=== PATIENT | female | born 1960 | race Caucasian/White ===

== ENCOUNTER 2016-03-26 07:26 | Day surgery (SDC) | payer BC ==
[2016-03-26] VITALS (7 sets, daily range): BP systolic 107–122; BP diastolic 60–75; PULSE 52–61; RESP 16–20; TEMP 97.6–97.8; O2SAT 96–97
[~2016-03-26] VITALS: Ht 165.1 cm; Wt 68.2 kg
[~2016-03-26 07:26] MED LIST: TAB-TAB PO
[2016-03-26] MEDS ORDERED: ROPI0.5T PO (07:43)
[2016-03-26] MEDS ORDERED: SODIUM CHLOR 0.9% 1000 ML INJ 1,000 ML IV SCH (07:45)
[2016-03-26 08:20] LABS: AUTOMATED NEUTROPHIL # 2.7 TH/MM3 (1.8-7.7); BASOPHIL # 0.1 TH/MM3 (0-0.2); EOSINOPHIL # 0.3 TH/MM3 (0-0.4); EOSINOPHIL % 5.2 % (0.0-4.0); HEMATOCRIT 36.9 % (35.0-46.0); HEMO FLAGS DIFF FINAL; LYMPH % 32.6 % (9.0-44.0); LYMPHOCYTE # 1.7 TH/MM3 (1.0-4.8); MEAN CELL VOLUME 91.9 FL (80.0-100.0); MEAN CORPUSCULAR HEMOGLOBIN 31.6 PG (27.0-34.0); MEAN CORPUSCULAR HGB CONC 34.3 % (32.0-36.0); MONO % 8.6 % (0.0-8.0); NEUT % 52.6 % (16.0-70.0); PLATELET COUNT 272 TH/MM3 (150-450); RED BLOOD COUNT 4.02 MIL/MM3 (4.00-5.30); RED CELL DISTRIBUTION WIDTH 12.8 % (11.6-17.2); WHITE BLOOD COUNT 5.1 TH/MM3 (4.0-11.0)
[2016-03-26 08:31] LABS: APTT (PATIENT) 25.4 SEC (24.3-30.1); PROTHROMBIN TIME - PATIENT 10.6 SEC (9.8-11.6)
[2016-03-26 08:39] LABS: BICARBONATE 26.9 MEQ/L (21.0-32.0)
--- NOTE | 2016-03-26 10:19 | PD.RAD ---
Post Procedure Progress Note Pre Procedure Diagnosis: (1) Neural axis abnormality Post Procedure Diagnosis: (1) Neural axis abnormality Procedure Date: Mar 26, 2016 Supervising Radiologist: Giovanny Contreras Proceduralist/Assist: RT Pato(R), RT Erick(R)(CV) Anesthesia: Local Plan of Activity Patient to Unit: ROPU Patient Condition: Good See PACS Report for procedural detail/treatment Spinal Procedure Lumbar Puncture L3-L4 Fluid Removal (CCs): 8 Fluid Description: Giovanny Linares MD Mar 26, 2016 10:19
[2016-03-26 11:40] LABS: GROSS BLOOD TUBE #1 0 (0); GROSS BLOOD TUBE #2 TRACE (0); SUPERNATE COLOR TUBE #1 CLEAR (CLEAR); SUPERNATE COLOR TUBE #2 CLEAR (CLEAR); WBC TUBE #1 0 /MM3 (0-10)
[2016-03-26 11:41] LABS: CSF LYMPHOCYTES 0 %; CSF NEUTROPHILS 0 %; GROSS BLOOD TUBE #3 0 (0); GROSS BLOOD TUBE #4 TRACE (0); SUPERNATE COLOR TUBE #3 CLEAR (CLEAR); SUPERNATE COLOR TUBE #4 CLEAR (CLEAR); VOLUME TUBE # 4 0.8 ML
[2016-03-27 16:02] LABS: ALBUMIN SERUM 4370 mg/dL (3200 - 4800); IGG INDEX CSF 0.53 (<=0.85); IGG SERUM 747 mg/dL (767 - 1590); IGG/ALBUMIN CSF 0.09 (<=0.21); IGG/ALBUMIN SERUM 0.17 (<=0.40); OLIGOCLONAL BANDING CSF 0 bands (()); OLIGOCLONAL BANDING INTERPRET 0 bands (<4); OLIGOCLONAL BANDING SERUM 0 bands (()); SYNTHESIS RATE CSF 0.24 mg/24 h (<=12)
[2016-03-27 23:56] LABS: CSF ANGIOTENSIN CONV ENZYME LESS THAN 5 U/L (< OR = 15)
[2016-07-16] MEDS ORDERED: DULC100C PO (09:10)
[2016-07-16] MEDS ORDERED: NAPR220T95 PO (09:10)
[2016-07-16] MEDS ORDERED: BIOT1SUB SL (09:10)
[2016-07-16] MEDS ORDERED: SOLU1INJ IV (12:33)
[2016-07-16] MEDS ORDERED: FAMO1TAB37 IV PUSH (12:33)
[2016-08-13] MEDS ORDERED: NAPR1TAB98 PO (10:28)
[2016-08-13] MEDS ORDERED: FAMO1TAB37 IV PUSH (10:33)
[2016-08-13] MEDS ORDERED: SENO8.6T5 PO (10:59)
[2016-08-13] MEDS ORDERED: CETI10CA3 PO (11:00)
== END 2016-03-26 12:30 | disposition home or self-care (01) ==
LOC: HROP 07:26 → HRIP 07:28 → HROP 12:30
PROVIDERS: ATTEND Psychiatry & Neurology Neurology
DX: M50.00 Cervical disc disorder with myelopathy, unspecified cervical region (principal)
CPT/HCPCS: 62270; 77003; 80048; 82040; 82042; 82164; 82784; 82945; 83916; 84157; 85025; 85610; 85730; 86592; 89051; J7030

== ENCOUNTER 2017-07-08 13:02 | Emergency (ER) | payer OTHER, BC ==
[~2017-07-08] VITALS: Ht 165.1 cm; Wt 76.1 kg
[~2017-07-08 13:02] MED LIST changes: +CETI10CA3 PO; +FAMO1TAB37 IV PUSH; +NAPR1TAB98 PO; +NEUR100C PO; +ROPI0.5T PO; +SENO8.6T5 PO; +SOLU125I IV; -TAB-TAB PO
[2017-07-08 13:10] VITALS: BP 128/65; PULSE 66; RESP 16; TEMP 98.2; O2SAT 95
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
== END 2017-07-08 15:15 | disposition home or self-care (01) ==
LOC: PHEFT 13:02
DX: S13.4XXA Sprain of ligaments of cervical spine, initial encounter (principal); G37.3 Acute transverse myelitis in demyelinating disease of central nervous system; V43.52XA Car driver injured in collision with other type car in traffic accident, initial encounter
CPT/HCPCS: 72125; 99283